=== PATIENT | male | born 1995 | race Hispanic/Latino ===

== ENCOUNTER 2022-05-29 18:11 | Inpatient (IN) | payer BC, OTHER ==
[~2022-05-29] VITALS: Ht 180.3 cm; Wt 102.0 kg
[2022-05-29] MEDS ORDERED: ONDANSETRON 4MG INJ IVP ONE (18:30)
[2022-05-29] MEDS ORDERED: MORPHINE 2 MG SYG IVP ONE (18:30)
[2022-05-29 18:37] LABS: BASOPHILS % (AUTO) 0.3 % (0.0-5.0); EOSINOPHILS % (AUTO) 0.2 % (0.0-8.0); HEMATOCRIT 47.6 % (42-54); LYMPHOCYTES % (AUTO) 15.4 % (21.0-51.0); MEAN CORPUSCULAR HEMOGLOBIN 31.2 pg (27.0-33.0); MEAN CORPUSCULAR HGB CONC 35.3 g/dL (32.0-36.0); MEAN CORPUSCULAR VOLUME 88.3 fL (79-99); MONOCYTES % (AUTO) 8.3 % (3.0-13.0); NEUTROPHILS % (AUTO) 75.4 % (40.0-77.0); PLATELET COUNT (AUTO) 265 K/uL (130-400); RED BLOOD CELL COUNT(AUTO) 5.39 MIL/uL (4.50-6.20); RED CELL DISTRIBUTION WIDTH 11.9 % (11.0-15.5); WHITE BLOOD COUNT (AUTO) 15.7 K/uL (4.8-10.8)
[2022-05-29 18:43] LABS: APPEARANCE,URINE CLEAR (CLEAR); BILIRUBIN,URINE NEGATIVE (NEGATIVE); COLOR,URINE YELLOW (YELLOW); GLUCOSE, URINE (UA) 100 mg/dL (NEGATIVE); KETONES,URINE NEGATIVE (NEGATIVE); LEUKOCYTE ESTERASE ,URINE NEGATIVE (NEGATIVE); NITRATE,URINE NEGATIVE (NEGATIVE); OCCULT BLOOD,URINE NEGATIVE (NEGATIVE); PROTEIN,URINE NEGATIVE (NEGATIVE); UROBILINOGEN,URINE 0.2 mg/dL (0.2-1.0)
[2022-05-29 18:46] LABS: CREATININE 1.2 mg/dL (0.5-1.5); POTASSIUM 3.8 mmol/L (3.5-5.1)
[2022-05-29 18:51] LABS: ALBUMIN 4.3 g/dL (3.5-5.0); TOTAL PROTEIN, SERUM 7.7 g/dL (6.0-8.3)
[2022-05-29 18:52] LABS: BACTERIA,URINE Rare /HPF (None Seen); MUCUS,URINE Rare LPF (None Seen); RBC,URINE 0-1 /HPF (0-1); SQUAMOUS EPITHELIAL CELL,UR Rare /HPF (0-2); WBC,URINE 0-1 /HPF (0-1)
[2022-05-29] MEDS ORDERED: ZOSYN 3.375GM +NS 50ML IV ONE (20:00)
[2022-05-29] MEDS ORDERED: ZOSYN 3.375GM+NS 50ML 50 ML ONE (20:19)
[2022-05-29] MEDS ORDERED: MORPHINE 2 MG SYG IV PRN (20:30)
[2022-05-29] MEDS ORDERED: ONDANSETRON 4MG INJ IV PRN (20:30)
[2022-05-29] MEDS ORDERED: MORPHINE 4 MG SYG IV PRN (20:30)
[2022-05-29] MEDS: LACTATED RINGERS 1000ML 1,000 ML IV SCH (20:44)
[2022-05-29] MEDS: ZOSYN 3.375GM+NS 50ML 50 ML IV SCH (20:44)
[2022-05-29] MEDS: FAMOTIDINE 20MG VIAL IV SCH (20:44)
[2022-05-29 23:26] VITALS: BP 121/68
[2022-05-30] VITALS (24 sets, daily range): BP systolic 123–140; BP diastolic 67–95
[2022-05-30] MEDS ORDERED: PHARMACY COMMUNICATION MISC PRN (03:00)
[2022-05-30] MEDS ORDERED: DIAZEPAM 5 MG/ML 2 ML SYG IV PRN (03:00)
[2022-05-30] MEDS: ZOSYN 3.375GM+NS 50ML 50 ML IV SCH ×3 (03:53→22:14)
[2022-05-30 04:58] LABS: BASOPHILS % (AUTO) 0.4 % (0.0-5.0); EOSINOPHILS % (AUTO) 0.7 % (0.0-8.0); LYMPHOCYTES % (AUTO) 18.1 % (21.0-51.0); MEAN CORPUSCULAR HEMOGLOBIN 30.9 pg (27.0-33.0); MEAN CORPUSCULAR HGB CONC 34.6 g/dL (32.0-36.0); MEAN CORPUSCULAR VOLUME 89.5 fL (79-99); MONOCYTES % (AUTO) 9.7 % (3.0-13.0); NEUTROPHILS % (AUTO) 70.7 % (40.0-77.0); PLATELET COUNT (AUTO) 255 K/uL (130-400); RED BLOOD CELL COUNT(AUTO) 5.14 MIL/uL (4.50-6.20); RED CELL DISTRIBUTION WIDTH 11.9 % (11.0-15.5); WHITE BLOOD COUNT (AUTO) 14.2 K/uL (4.8-10.8)
[2022-05-30 05:06] LABS: PROTHROMBIN TIME 10.9 SEC (9.6-11.6)
[2022-05-30 05:07] LABS: PARTIAL THROMBOPLASTIN TIME 32.5 SEC (26.3-35.5)
[2022-05-30 05:10] LABS: CREATININE 1.3 mg/dL (0.5-1.5); MAGNESIUM 1.9 mg/dL (1.80-2.40); PHOSPHORUS 3.5 mg/dL (2.5-4.9); POTASSIUM 4.3 mmol/L (3.5-5.1)
[2022-05-30] MEDS: FAMOTIDINE 20MG VIAL IV SCH ×2 (09:36→22:14)
[2022-05-30] MEDS: LACTATED RINGERS 1000ML 1,000 ML IV SCH ×2 (09:39→22:14)
[2022-05-30] MEDS ORDERED: BUPIVACAINE/EPI/PF 0.25% 10ML VIAL IJ ONE (10:45)
[2022-05-30] MEDS ORDERED: LIDOCAINE HCL 1% 20 ML VIAL ONE (10:45)
[2022-05-30] MEDS ORDERED: KETOROLAC 30MG VIAL (30MG/ML) ONE (12:21)
[2022-05-30] MEDS ORDERED: MEPERIDINE-PF 25 MG/ML SYG ONE ×2 (12:21→12:46)
[2022-05-30] MEDS ORDERED: OXYCODONE/ACETAMIN 5/325MG TAB PO PRN ×2 (14:30→15:00)
[2022-05-30] MEDS ORDERED: HYDROMORPHONE 1 MG INJ IVP PRN ×2 (14:30→15:00)
[2022-05-30] MEDS ORDERED: KETOROLAC 30MG VIAL (30MG/ML) IVP PRN (14:30)
[2022-05-30] MEDS ORDERED: KETOROLAC 30MG VIAL (30MG/ML) IM PRN (15:00)
[2022-05-31] VITALS: BP 129/67
[2022-05-31 03:40] VITALS: BP_SYST 106; BP_SYST 119; BP_DIAS 80
[2022-05-31 03:44] VITALS: BP 119/76
[2022-05-31] MEDS: ZOSYN 3.375GM+NS 50ML 50 ML IV SCH (05:14)
[2022-05-31 06:07] LABS: HEMATOCRIT 42.9 % (42-54); MEAN CORPUSCULAR HEMOGLOBIN 30.9 pg (27.0-33.0); MEAN CORPUSCULAR HGB CONC 33.8 g/dL (32.0-36.0); MEAN CORPUSCULAR VOLUME 91.3 fL (79-99); RED BLOOD CELL COUNT(AUTO) 4.7 MIL/uL (4.50-6.20); RED CELL DISTRIBUTION WIDTH 11.7 % (11.0-15.5); WHITE BLOOD COUNT (AUTO) 11.4 K/uL (4.8-10.8)
[2022-05-31 06:16] LABS: CREATININE 1.3 mg/dL (0.5-1.5); POTASSIUM 3.7 mmol/L (3.5-5.1)
[2022-05-31 07:40] VITALS: BP 132/75
[2022-05-31] MEDS: FAMOTIDINE 20MG VIAL IV SCH (09:20)
[2022-05-31 11:50] VITALS: BP 140/88
== END 2022-05-31 15:15 | disposition home or self-care (01) | DRG 343 ==
LOC: EDH 18:11 → EDHIP 18:12 → 3DH 22:31
PROVIDERS: ADMIT Hospitalist; ATTEND Hospitalist
PROC: 0DTJ4ZZ Resection of Appendix, Percutaneous Endoscopic Approach (ICD-10-PCS; principal; 2022-05-30 11:08)
DX: K35.80 Unspecified acute appendicitis (principal); F10.10 Alcohol abuse, uncomplicated; Z20.822 Contact with and (suspected) exposure to COVID-19
CPT/HCPCS: 36415; 74176; 80048; 80053; 81001; 83690; 83735; 84100; 85025; 85027; 85610; 85730; 86850; 86900; 86901; 87635; G0378; J1885; J2175; J2405; J2543; J3490; J7120